=== PATIENT | female | born 1995 | race Caucasian/White ===

== ENCOUNTER 2017-02-20 21:10 | Emergency (ER) | payer OTHER ==
[~2017-02-20] VITALS: Ht 152.4 cm; Wt 64.5 kg
[2017-02-20 21:13] VITALS: Ht 152.4 cm; Wt 64.5 kg
--- NOTE | 2017-02-20 23:33 | ERD ---
ER Documentation Chief Complaint Date/Time DATE: 02/20/17 TIME: 23:30 Chief Complaint Palpitations shortness of breath chest pain on and off for 2 week HPI 21-year-old female presents with emergency department for complaints of feelings of palpitations, episodes of shortness of breath and mid chest pain on and off for the last 2 weeks, got worse today. Prior to coming in emergency department she had the pain. At this time, patient denies any pain at this time. Patient described the pain as sharp pain, 6/10 scale, not better or worse with anything. Patient denies any dyspnea exertion or dyspnea on lying down. Patient denies any fever or chills. Patient denies any cough. Do not take any medications to help with symptoms. Patient denies any episodes of anxiety at home or being diagnosed as having anxiety. Drinks Tea occasionally. ROS All systems reviewed and are negative except as per history of present illness. Medications Home Meds Reported Medications [none] Unknown Strength No Conflict Check 02/20/17 Allergies Allergies: Coded Allergies: No Known Allergy (Unverified , 02/20/17) PMhx/Soc Medical and Surgical Hx: pt denies Medical Hx, pt denies Surgical Hx Hx Alcohol Use: No Hx Substance Use: No Hx Tobacco Use: No Smoking Status: Never smoker FmHx Family History: No coronary disease, No diabetes, No other Physical Exam Vitals Vital Signs Date Time Temp Pulse Resp B/P Pulse Ox O2 Delivery O2 Flow Rate FiO2 02/20/17 21:13 97.8 101 20 128/88 100 Physical Exam GENERAL: The patient is well developed and appropriate for usual state of health, in no apparent distress. CHEST: Clear to auscultation bilaterally. There are no rales, wheezes or rhonchi. HEART: Regular rate and rhythm. No murmurs, clicks, rubs or gallops. No S3 or S4. ABDOMEN: Soft, nontender and nondistended. Good bowel sounds. No rebound or guarding. No gross peritonitis. No gross organomegaly or masses. No Gaitan sign or McBurney point tenderness. BACK: No midline or flank tenderness. EXTREMITIES: Equal pulses bilaterally. There is no peripheral clubbing, cyanosis or edema. No focal swelling or erythema. Full range of motion. Grossly neurovascularly intact. NEURO: Alert and oriented. Cranial nerves 2-12 intact. Motor strength in all 4 extremities with 5/5 strength. Sensation grossly intact. Normal speech and gait. SKIN: There is no apparent rash or petechia. The skin is warm and dry. HEMATOLOGIC AND LYMPHATIC: There is no evidence of excessive bruising or lymphedema. No gross cervical, axillary, or inguinal lymphadenopathy. Results 24 hrs EKG was done, read by me and is normal sinus rhythm at a rate of 78, normal axis , there is no ST changes or changes in the EKG that indicates any cardiac emergencies at this time. Patient's EKG was also reviewed by Dr. Singh. Impression: no acute findings on EKG PROCEDURE: XR Chest. CLINICAL INDICATION: Dyspnea and cardiac palpitations. TECHNIQUE: Single frontal view of the chest. COMPARISON: None. FINDINGS: The cardiomediastinal silhouette is within normal limits. The lungs are clear. No signs of pleural fluid or pneumothorax are seen. The osseous structures and soft tissues are unremarkable. IMPRESSION: No evidence for active cardiopulmonary disease. 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 There is low suspicion for cardiopulmonary emergencies at this time. Patient has low risk factors. EKG is normal, there is no changes in the EKG that indicates cardiac emergencies. Chest X-ray does not show cardiopulmonary emergencies at this time. There is low suspicion for aortic aneurysm, myocardial infarction, pneumothorax, pleural effusion, pulmonary embolism, or any other cardiopulmonary emergencies at this time. Patient advised to avoid caffeine. Dispostion: Home. Stable Departure Diagnosis: Primary Impression: Palpitations Condition: Stable Patient Instructions: Palpitations ELIZABETH BILLINGS NP February 20, 2017 23:33
--- NOTE | 2017-02-20 23:57 | RADRPT ---
PROCEDURE: XR Chest. CLINICAL INDICATION: Dyspnea and cardiac palpitations. TECHNIQUE: Single frontal view of the chest. COMPARISON: None. FINDINGS: The cardiomediastinal silhouette is within normal limits. The lungs are clear. No signs of pleural f luid or pneumothorax are seen. The osseous structures and soft tissues are unremarkable. IMPRESSION: No evidence for active cardiopulmonary disease. RPTAT: [facility] Emmanuel Chung Physician Date Time Electronically viewed and signed by Emmanuel Chung Physician on 02/20/2017 23:57 RS/
[2017-02-21 01:29] VITALS: BP 128/86; PULSE 77; RESP 18
== END 2017-02-21 01:30 | disposition home or self-care (01) ==
LOC: FTE 21:10
DX: R00.2 Palpitations (principal)
CPT/HCPCS: 71010; 93005

== ENCOUNTER 2017-11-25 07:16 | Emergency (ER) | END 2017-11-25 11:22 | disposition home or self-care (01) ==

== ENCOUNTER → 2019-05-30 | Emergency (ER) | payer OTHER ==
[~2019-05-30] VITALS: Ht 152.4 cm; Wt 57.0 kg
[~2019-05-30] MED LIST: CIPR500T4 PO
[2019-05-30 21:59] VITALS: BP 126/74; PULSE 70; RESP 16; Ht 152.4 cm; Wt 57.0 kg
== END | disposition home or self-care (01) ==
LOC: FTE 21:52
DX: F41.9 Anxiety disorder, unspecified (principal)
CPT/HCPCS: 93005